=== PATIENT | male | born 1960 | race Caucasian/White ===

== ENCOUNTER → 2019-08-28 16:42 | Outpatient (CLI) | payer MEDICAID ==
[2019-08-28 17:28] LABS: HEMATOCRIT 34.8 % (42.0-54.0); HEMOGLOBIN 10.6 g/dL (13.5-17.5); MCHC 30.5 g/dL (31.0-37.0); MCV 88.5 fL (80.0-100.0); MEAN PLATELET VOLUME 9.6 fL (7.4-10.4); PLATELET COUNT 62 10x3/uL (130-400); RBC 3.93 10x6/uL (4.20-6.10)
[2019-08-28 17:34] LABS: APTT 27.3 SECONDS (22.8-39.4); INR 1.04 (0.85-1.17); PROTIME 13.6 SECONDS (11.6-15.0)
[2019-08-28 17:47] LABS: ALBUMIN 3.3 g/dL (3.4-5.0); ALKALINE PHOSPHATASE 187 U/L (30-120); ALT (SGPT) 51 U/L (10-68); BILIRUBIN - TOTAL 0.57 mg/dL (0.2-1.3); CALC OSMOLALITY 277 mosm/kg (275-300); CALCIUM 8.2 mg/dL (8.5-10.1); CARBON DIOXIDE 27.1 mmol/L (21.0-32.0); CHLORIDE - SERUM 105 mmol/L (98-107); CREATININE - SERUM 0.6 mg/dL (0.6-1.3); GLUCOSE 87 mg/dL (74-106); POTASSIUM - SERUM 3.9 mmol/L (3.5-5.1); PROTEIN - SERUM 7.5 g/dL (6.4-8.2); SODIUM 140 mmol/L (136-145); UREA NITROGEN 12 mg/dL (7-18); eGFR NON AFRICAN AMERICAN > 90 mL/min (90-120)
[2019-08-28 21:42] LABS: EOSINOPHILS 5 % (0-7); LYMPHOCYTES 32 % (15-50); MONOCYTES 5 % (2-11); NEUTROPHILS 55 % (40-80); PLATELET ESTIMATE DECREASED
[2019-08-30 09:09] LABS: HEPATITIS C ANTIBODY >11.0 S/CO RAT (0.0-0.9)
== END | disposition home or self-care (01) ==
LOC: D.LAB 16:42
PROVIDERS: ATTEND Internal Medicine Gastroenterology
DX: C22.8 Malignant neoplasm of liver, primary, unspecified as to type (principal); K74.60 Unspecified cirrhosis of liver